=== PATIENT | male | born 1985 | race African-American/Black ===

== ENCOUNTER 2021-12-20 14:29 | Inpatient (IN) ==
[2021-12-20 16:13] LABS: Basophils % 0.4 % (0.0-0.8); Eosinophils # 0.1 10*3/uL (0.0-0.87); Eosinophils % 1.8 % (0.00-10.9); Hematocrit 41.5 VOL% (42.0-52.0); Hemoglobin 13.7 GM/DL (14.0-18.0); Immature Granulocytes % 0.3 %; Immature Granulocytes Absolute 0.02 #; Lymphocytes # 1.6 10*3/uL (1.4-4.0); Lymphocytes % 22.2 % (21.2-54.2); Mean Corpuscular Volume 91.2 FL (87-102); Mean Platelet Volume 9.6 FL (9.6-12.0); Neutrophils % 65.3 % (38.7-73.9); Platelet Count 308 T/CUMM (130-400); Red Blood Count 4.55 MC/CUMM (3.8-5.5); Red Cell Distribution Width 13.1 % (9.3-17.3); White Blood Count 7.2 T/CUMM (4-12)
[2021-12-20] MEDS ORDERED: VANCOMYCIN INJ 1,000 MG in SODIUM CHLORIDE 0.9% 250 ML IV STA (16:14)
[2021-12-20 16:37] LABS: Albumin 4.2 G/DL (3.4-5.0); Bilirubin,Total 1.1 MG/DL (0.20-1.00); Calcium 9.4 MG/DL (8.5-10.1); Potassium 3.2 MMOL/L (3.5-5.1); Total Protein 8.2 G/DL (6.4-8.2)
[2021-12-20 16:44] LABS: Eosinophils 1 % (0-10); Lymphocytes 31 % (20-55); Platelet Estimate Adequate; Segmented Neutrophils 64 % (50-85); Total Cells Counted 100
[2021-12-20] MEDS ORDERED: PIPERACILLIN/TAZOBACTAM 3,375 MG in SODIUM CHLORIDE 0.9% 100 ML IV STA (17:22)
[2021-12-20] MEDS ORDERED: MAGNESIUM HYDROXIDE SUSP 30 ML UDCUP PO PRN (17:35)
[2021-12-20] MEDS ORDERED: MORPHINE 2 MG/1 ML SYRINGE IV PRN ×2 (17:35)
[2021-12-20] MEDS ORDERED: ONDANSETRON 4 MG/2 ML VIAL IV PRN (17:35)
[2021-12-20 20:37] LABS: Barbiturates Screen,Urine Negative (Negative); Benzodiazepines Screen,Urine Negative (Negative); Cannabinoid Screen,Urine Positive (Negative); Opiate Screen,Urine Negative (Negative); Phencyclidine Screen,Urine Negative (Negative)
[2021-12-20] MEDS ORDERED: POTASSIUM CHLORIDE INJ 40 MEQ in LACTATED RINGERS 1,000 ML IV SCH (21:00)
[2021-12-20 21:15] LABS: Bacteria,Urine Occasional /HPF (Few); Mucus,Urine Occasional /LPF (Occasional); RBC,Urine 8 /HPF (0-4)
[2021-12-20 21:35] LABS: Urine Appearance Clear (Clear); Urine Color Yellow (Yellow)
[2021-12-20 21:36] LABS: Bilirubin,Urine Negative (Negative); Blood, Urine Negative (Negative); Glucose,Urine (UA) Negative (Negative); Ketones,Urine Trace mg/dL (Negative); Nitrite,Urine Negative (Negative); Protein,Urine Negative (Negative); Urine Specific Gravity 1.015 (1.001-1.035)
[2021-12-21] MEDS: VANCOMYCIN INJ 1,250 MG in SODIUM CHLORIDE 0.9% 250 ML IV SCH ×2 (04:35→16:44)
[2021-12-21 06:18] LABS: Basophils % 0.5 % (0.0-0.8); Eosinophils # 0.2 10*3/uL (0.0-0.87); Eosinophils % 3.3 % (0.00-10.9); Hematocrit 37.7 VOL% (42.0-52.0); Hemoglobin 12.7 GM/DL (14.0-18.0); Immature Granulocytes % 0.3 %; Immature Granulocytes Absolute 0.02 #; Lymphocytes # 1.8 10*3/uL (1.4-4.0); Lymphocytes % 27.6 % (21.2-54.2); Mean Corpuscular HGB Conc 33.7 GM/DL (32-36); Mean Corpuscular Volume 91.5 FL (87-102); Mean Platelet Volume 10.6 FL (9.6-12.0); Monocytes % 7.1 % (1.7-12.7); Neutrophils % 61.2 % (38.7-73.9); Platelet Count 274 T/CUMM (130-400); Red Blood Count 4.12 MC/CUMM (3.8-5.5); Red Cell Distribution Width 13.3 % (9.3-17.3); White Blood Count 6.6 T/CUMM (4-12)
[2021-12-21 06:34] LABS: Calcium 8.3 MG/DL (8.5-10.1); Osmolality,Calculated 270.2 MOS/KG (273-304); Potassium 5.2 MMOL/L (3.5-5.1)
[2021-12-21 06:40] LABS: Eosinophils 2 % (0-10); Lymphocytes 35 % (20-55); Segmented Neutrophils 59 % (50-85); Total Cells Counted 100
[2021-12-21 06:41] LABS: Hypochromia Slight; Microcytosis Slight; Platelet Estimate Normal
[2021-12-21] MEDS ORDERED: MIDAZOLAM 2 MG/2 ML VIAL ONE (11:39)
[2021-12-21] MEDS ORDERED: ONDANSETRON 4 MG/2 ML VIAL ONE (11:39)
[2021-12-21] MEDS ORDERED: SEVOFLURANE 1 UNIT/15 MINUTE INH ONE ×2 (11:39→13:17)
[2021-12-21] MEDS ORDERED: propofoL 200 MG/20 ML VIAL IV ONE (11:39)
[2021-12-21] MEDS ORDERED: LIDOCAINE 2% 5 ML VIAL ONE (11:39)
[2021-12-21] MEDS ORDERED: fentaNYL 100 MCG/2 ML VIAL ONE (11:40)
[2021-12-21] MEDS ORDERED: LACTATED RINGERS 1,000 ML IV SCH (12:00)
[2021-12-21] MEDS ORDERED: BUPIVACAINE 0.5% 50 ML VIAL ONE (12:21)
[2021-12-21] MEDS ORDERED: BACITRACIN OINT 0.9 GM PACK TOP ONE (12:22)
[2021-12-21] MEDS: PANTOPRAZOLE 40 MG TABLET PO SCH (16:33)
[2021-12-21] MEDS: SODIUM CHLORIDE 0.9% 1,000 ML IV SCH (16:35)
[2021-12-22] MEDS: SODIUM CHLORIDE 0.9% 1,000 ML IV SCH ×2 (01:06→04:31)
[2021-12-22] MEDS: VANCOMYCIN INJ 1,250 MG in SODIUM CHLORIDE 0.9% 250 ML IV SCH ×2 (01:23→13:57)
[2021-12-22 05:54] LABS: Basophils % 0.4 % (0.0-0.8); Eosinophils # 0.3 10*3/uL (0.0-0.87); Hematocrit 37.3 VOL% (42.0-52.0); Hemoglobin 12.1 GM/DL (14.0-18.0); Immature Granulocytes % 0.2 %; Immature Granulocytes Absolute 0.01 #; Lymphocytes # 2.1 10*3/uL (1.4-4.0); Lymphocytes % 42.7 % (21.2-54.2); Mean Corpuscular HGB Conc 32.4 GM/DL (32-36); Mean Corpuscular Volume 93.5 FL (87-102); Neutrophils % 41.7 % (38.7-73.9); Platelet Count 260 T/CUMM (130-400); Red Blood Count 3.99 MC/CUMM (3.8-5.5); Red Cell Distribution Width 13.3 % (9.3-17.3); White Blood Count 4.8 T/CUMM (4-12)
[2021-12-22 06:17] LABS: Calcium 8.4 MG/DL (8.5-10.1); Osmolality,Calculated 276.5 MOS/KG (273-304); Potassium 4.2 MMOL/L (3.5-5.1)
[2021-12-22] MEDS: PANTOPRAZOLE 40 MG TABLET PO SCH (09:51)
[2021-12-22] MEDS: OXACILLIN 2,000 MG in SODIUM CHLORIDE 0.9% 100 ML IV SCH ×2 (18:30→23:57)
[2021-12-23] MEDS: OXACILLIN 2,000 MG in SODIUM CHLORIDE 0.9% 100 ML IV SCH ×3 (05:48→17:43)
[2021-12-23] MEDS: PANTOPRAZOLE 40 MG TABLET PO SCH (09:59)
[2021-12-24] MEDS: OXACILLIN 2,000 MG in SODIUM CHLORIDE 0.9% 100 ML IV SCH ×4 (00:34→19:41)
[2021-12-24] MEDS ORDERED: diphenhydrAMINE 50 MG/1 ML VIAL IV PRN (06:01)
[2021-12-24] MEDS ORDERED: ONDANSETRON 4 MG/2 ML VIAL IV PRN (06:01)
[2021-12-24] MEDS ORDERED: PROMETHAZINE INJ 25 MG in SODIUM CHLORIDE 0.9% 50 ML IV PRN (06:01)
[2021-12-24] MEDS ORDERED: HYDROmorphone 1 MG/1 ML SYRINGE IV PRN (06:01)
[2021-12-24] MEDS ORDERED: ONDANSETRON 4 MG/2 ML VIAL ONE (06:19)
[2021-12-24] MEDS ORDERED: fentaNYL 100 MCG/2 ML VIAL ONE (06:19)
[2021-12-24] MEDS ORDERED: MIDAZOLAM 2 MG/2 ML VIAL ONE (06:19)
[2021-12-24] MEDS ORDERED: LIDOCAINE 2% 5 ML VIAL ONE (06:19)
[2021-12-24] MEDS ORDERED: propofoL 200 MG/20 ML VIAL IV ONE (06:19)
[2021-12-24] MEDS ORDERED: BUPIVACAINE 0.5% 50 ML VIAL ONE (06:29)
[2021-12-24] MEDS ORDERED: BACITRACIN OINT 0.9 GM PACK TOP ONE (06:30)
[2021-12-24] MEDS ORDERED: IBUPROFEN 400 MG TABLET PO PRN (07:38)
[2021-12-24] MEDS ORDERED: SEVOFLURANE 1 UNIT/15 MINUTE INH ONE (08:01)
[2021-12-24] MEDS ORDERED: PROMETHAZINE 25 MG/1 ML VIAL ONE (08:29)
[2021-12-24] MEDS: MEPERIDINE 25 MG/1 ML VIAL IV PRN ×2 (08:30→08:40)
[2021-12-24] MEDS: PANTOPRAZOLE 40 MG TABLET PO SCH (09:48)
[2021-12-25] MEDS: OXACILLIN 2,000 MG in SODIUM CHLORIDE 0.9% 100 ML IV SCH ×4 (00:13→18:17)
[2021-12-25] MEDS: PANTOPRAZOLE 40 MG TABLET PO SCH (08:58)
[2021-12-26] MEDS: OXACILLIN 2,000 MG in SODIUM CHLORIDE 0.9% 100 ML IV SCH ×4 (00:08→18:20)
[2021-12-26] MEDS: PANTOPRAZOLE 40 MG TABLET PO SCH (09:14)
[2021-12-27] MEDS: OXACILLIN 2,000 MG in SODIUM CHLORIDE 0.9% 100 ML IV SCH (00:34)
[2021-12-27 03:09] VITALS: BP 138/68
== END 2021-12-27 04:17 | disposition left against medical advice (07) | DRG 514 ==
LOC: N.ED 14:29 → N.3E 17:20
PROVIDERS: ADMIT Orthopaedic Surgery; ATTEND Orthopaedic Surgery